=== PATIENT | female | born 1985 | race Asian ===

== ENCOUNTER → 2019-09-01 | Emergency (ER) | payer OTHER ==
[~2019-09-01] VITALS: Ht 172.7 cm; Wt 79.8 kg
[~2019-09-01] MED LIST: LIDOCAINE 1% HCL (LOCAL ANESTH.) INJ 20ML MDV ONE; LIDOCAINE W/ EPINEPHRINE 1% 20ML VIAL ONE; TETANUS-DIPTH-ACEL PERTUSSIS 0.5ML SYR Tdap IM ONE
[2019-09-01 05:00] VITALS: BP 123/85
== END | disposition home or self-care (01) ==
LOC: EDBD 01:49 → ER 01:54
DX: S01.01XA Laceration without foreign body of scalp, initial encounter (principal); Y04.2XXA Assault by strike against or bumped into by another person, initial encounter; Y93.89 Activity, other specified; Y92.89 Other specified places as the place of occurrence of the external cause; Y99.8 Other external cause status
CPT/HCPCS: 12004; 70450; 72125; 90471; 90715; J2001

== ENCOUNTER 2019-09-09 16:47 | Emergency (ER) | payer OTHER ==
[~2019-09-09] VITALS: Ht 175.3 cm; Wt 99.8 kg
[2019-09-09 17:08] VITALS: BP 123/86
== END 2019-09-09 17:55 | disposition home or self-care (01) ==
LOC: ER 16:47
DX: S01.01XD Laceration without foreign body of scalp, subsequent encounter (principal); X58.XXXD Exposure to other specified factors, subsequent encounter